=== PATIENT | male | born 1965 | race Caucasian/White ===

== ENCOUNTER → 2020-08-05 15:56 | Outpatient (BNVA) | payer SELFPAY | PROVIDERS: PCP Nurse Practitioner Family; Visit Provider Nurse Practitioner Family | DX: L08.89 Other specified local infections of the skin and subcutaneous tissue (principal); L25.9 Unspecified contact dermatitis, unspecified cause | CPT/HCPCS: 85025 ==

== ENCOUNTER → 2020-08-07 10:03 | Outpatient (BNVA) | payer SELFPAY | PROVIDERS: PCP Nurse Practitioner Family; Visit Provider Nurse Practitioner | DX: D69.6 Thrombocytopenia, unspecified (principal); L25.9 Unspecified contact dermatitis, unspecified cause | CPT/HCPCS: 85025 ==